=== PATIENT | male | born 1960 | race Caucasian/White ===

== ENCOUNTER 2017-08-01 13:02 | Outpatient (CLI) | payer OTHER ==
[2017-08-01] MEDS ORDERED: Iopamidol 370 76% 100 ML VIAL ONE (16:48)
== END 2017-08-01 13:03 | disposition home or self-care (01) ==
LOC: BICCT 13:02
PROVIDERS: ATTEND Specialist
DX: R10.9 Unspecified abdominal pain (principal); N40.0 Benign prostatic hyperplasia without lower urinary tract symptoms; N32.89 Other specified disorders of bladder
CPT/HCPCS: 74177